=== PATIENT | female | born 1970 | race African-American/Black ===

== ENCOUNTER 2017-02-11 12:39 | Emergency (ER) | payer OTHER ==
[~2017-02-11] VITALS: Ht 162.6 cm; Wt 113.4 kg
[~2017-02-11 12:39] MED LIST: ALBUTEROL2.5 MG/0.5 INH; ALBUTEROL2.5 MG/31 IH; ALLEGRA ALLERG180 MG; ALLER-EASE180 MG PO; ASMANEX220 MCG INH; CLINDAMYCIN HC150 MG; DOXYCYCLINE 10100 MG; FLONASE 0.05%50 MCG NASAL; FLOVENT HFA 1110 MCG INH; GLUCOTROL5 MG PO; HYDROCHLOROTHIA25 M2 PO; HYDROCODONE-AP1 EAC6; INDOMETHACIN 5050 MG PO; IRON325 PO; MEDROLDOSEPACK PO; METFORMIN HCL500 MG PO; ORADENT 0.1% DEN5 G1 TOP; PROAIR HFA8.5 GM; SINGULAIR 10 MG10 M1 PO; TRI-SPRINTEC1 EACH PO; VASOTEC10 MG PO; ZPAK PO
[2017-02-11 12:43] VITALS: BP 123/79
[2017-02-11] MEDS ORDERED: ALBUTEROL2.5 MG/31 INH (14:27)
[2017-02-11] MEDS ORDERED: PREDNISONE 20 M20 MG PO (14:27)
[2017-02-11] MEDS ORDERED: FLONASE 0.05%50 MCG NASAL (14:27)
[2017-10-28] MEDS ORDERED: ONDANSETRON HCL4 M2 PO (19:45)
[2017-10-28] MEDS ORDERED: NORCO 5-325 TA1 EACH PO (19:45)
[2017-10-28] MEDS ORDERED: LIORESAL 10 MG10 MG PO (19:45)
== END 2017-02-11 15:02 | disposition home or self-care (01) ==
LOC: ER 12:39
DX: J45.901 Unspecified asthma with (acute) exacerbation (principal); J06.9 Acute upper respiratory infection, unspecified; J34.89 Other specified disorders of nose and nasal sinuses; I10 Essential (primary) hypertension; E11.9 Type 2 diabetes mellitus without complications; Z98.890 Other specified postprocedural states; Z88.0 Allergy status to penicillin; Z88.6 Allergy status to analgesic agent

== ENCOUNTER 2017-06-24 22:19 | Emergency (ER) | payer OTHER ==
[~2017-06-24] VITALS: Ht 165.1 cm; Wt 113.4 kg
[~2017-06-24 22:19] MED LIST changes: +ALBUTEROL2.5 MG/31 INH; +PREDNISONE 20 M20 MG PO
[2017-06-24] MEDS ORDERED: SINGULAIR 10 MG10 M1 PO (22:53)
[2017-06-24] MEDS ORDERED: THEREMS-M1 EACH PO (22:54)
[2017-06-24] MEDS ORDERED: IRON325 PO (22:54)
[2017-06-25] MEDS ORDERED: MOBIC15 MG PO (00:36)
== END 2017-06-25 00:49 | disposition home or self-care (01) ==
LOC: ER 22:19
DX: M25.561 Pain in right knee (principal); J45.909 Unspecified asthma, uncomplicated; I10 Essential (primary) hypertension; E11.9 Type 2 diabetes mellitus without complications; M19.90 Unspecified osteoarthritis, unspecified site; Z88.1 Allergy status to other antibiotic agents; Z88.0 Allergy status to penicillin; Z88.6 Allergy status to analgesic agent

== ENCOUNTER 2017-08-21 22:11 | Emergency (ER) | payer OTHER ==
[~2017-08-21] VITALS: Ht 165.1 cm; Wt 113.4 kg
--- NOTE | ~2017-08-21 | EKG ---
[address] [address] ELECTROCARDIOGRAM REPORT Name: MELISSA WILSON Room #: [facility]#: [id number] Admission: 08/21/17 Attend Phys: Discharge: 08/22/17 Date of : 66 Report #: [id number] THIS REPORT FOR: //name// [facility] ED Test Date: 2017-08-21 Test Time: 22:17:43 Pat Name: MELISSA WILSON Department: Room: Gender: F Assistant Art Director: MZOOK : 1970 Requested By: Chavez Lassiter Order Number: [id number] MD: Benjamin Talamantes Measurements Intervals [place] Rate: 94 P: 59 OR: 178 QRS: 7 QRSD: 82 T: 5 QT: 353 QTc: 442 Interpretive Statements Sinus rhythm No significant abnormality Compared to ECG 03/08/2015 10:50:34 No significant change was found Electronically Signed On 08-22-2017 8:45:20 CDT by Benjamin Talamantes [email or web address] <ELECTRONICALLY SIGNED> By: Benjamin Talamantes MD, [facility] 08/22/17 0845 [id number] 16 Benjamin Talamantes MD, FACC /EPI
[~2017-08-21 22:11] MED LIST changes: +MOBIC15 MG PO; +THEREMS-M1 EACH PO
[2017-08-22 00:48] LABS: ABSOLUTE NEUTROPHILS 5.3 thou/uL (1.4-8.2); EOSINOPHILS 2.6 % (0.0-3.0); HEMATOCRIT 33.2 % (37.0-47.0); HEMOGLOBIN 11.3 gm/dL (12.0-15.0); LYMPHOCYTES 34.6 % (24.0-44.0); MCH 29.7 pg (26.0-34.0); MCHC 33.9 g/dL (28.0-37.0); MCV 87.4 fL (80.0-100.0); MONOCYTES 11.6 % (1.0-8.0); PLATELET COUNT 423 thou/uL (150-400); POLYS 50.2 % (36.0-66.0); RDW 13.9 % (10.5-14.5); WBC 10.5 thou/uL (4.0-11.0)
[2017-08-22 00:56] LABS: ANION GAP 9 mmol/L (7-16); BUN 18 mg/dL (7-18); CALCIUM 8.9 mg/dL (8.5-10.1); CHLORIDE 100 mmol/L (98-107); CO2 25 mmol/L (21-32); GLUCOSE 302 mg/dL (74-106); POTASSIUM 3.5 mmol/L (3.5-5.1); SODIUM 134 mmol/L (136-145)
[2017-08-22 01:04] LABS: ALBUMIN 3.3 g/dL (3.4-5.0); SGOT 17 U/L (15-37); SGPT 21 U/L (30-65); TOTAL BILIRUBIN 0.1 mg/dL (<0.1-1.0); TOTAL PROTEIN 7.4 g/dL (6.4-8.2); TROPONIN-I <0.06 ng/mL (<0.06)
[2017-08-22] MEDS ORDERED: PROAIR HFA8.5 GM INH (01:24)
[2017-08-22] MEDS ORDERED: PREDNISONE 20 M20 MG PO (01:24)
[2017-08-22] MEDS ORDERED: ZPAK PO (01:24)
== END 2017-08-22 02:30 | disposition home or self-care (01) ==
LOC: ER 22:11
PROVIDERS: Physician Assistant
DX: J45.901 Unspecified asthma with (acute) exacerbation (principal); M25.561 Pain in right knee; I10 Essential (primary) hypertension; E11.9 Type 2 diabetes mellitus without complications; M19.90 Unspecified osteoarthritis, unspecified site; Z88.1 Allergy status to other antibiotic agents; Z88.0 Allergy status to penicillin; Z88.6 Allergy status to analgesic agent

== ENCOUNTER 2017-10-31 03:49 | Emergency (ER) | payer OTHER ==
[~2017-10-31] VITALS: Ht 165.1 cm; Wt 110.7 kg
[~2017-10-31 03:49] MED LIST changes: +LIORESAL 10 MG10 MG PO; +NORCO 5-325 TA1 EACH PO; +ONDANSETRON HCL4 M2 PO; +PROAIR HFA8.5 GM INH
[2017-10-31] MEDS ORDERED: MOBIC15 MG PO (05:54)
== END 2017-10-31 06:12 | disposition home or self-care (01) ==
LOC: ER 03:49
DX: S16.1XXA Strain of muscle, fascia and tendon at neck level, initial encounter (principal); S09.90XA Unspecified injury of head, initial encounter; R11.10 Vomiting, unspecified; R42 Dizziness and giddiness; R19.7 Diarrhea, unspecified; I10 Essential (primary) hypertension; J45.909 Unspecified asthma, uncomplicated; E11.9 Type 2 diabetes mellitus without complications; M19.90 Unspecified osteoarthritis, unspecified site; Z98.890 Other specified postprocedural states; Z88.1 Allergy status to other antibiotic agents; Z88.0 Allergy status to penicillin; Z88.6 Allergy status to analgesic agent; V89.2XXA Person injured in unspecified motor-vehicle accident, traffic, initial encounter; Y92.410 Unspecified street and highway as the place of occurrence of the external cause; Y93.89 Activity, other specified; Y99.8 Other external cause status

== ENCOUNTER 2018-04-10 07:48 | Emergency (ER) | payer OTHER ==
[~2018-04-10] VITALS: Ht 162.6 cm; Wt 109.8 kg
[2018-04-10 08:07] LABS: ABSOLUTE NEUTROPHILS 4.9 thou/uL (1.4-8.2); EOSINOPHILS 4.2 % (0.0-3.0); HEMOGLOBIN 12.3 gm/dL (12.0-15.0); MCH 29.6 pg (26.0-34.0); MCHC 34.1 g/dL (28.0-37.0); MCV 86.6 fL (80.0-100.0); MONOCYTES 7.4 % (1.0-8.0); PLATELET COUNT 442 thou/uL (150-400); POLYS 51.4 % (36.0-66.0); RBC 4.16 mil/uL (4.20-5.00); RDW 13.8 % (10.5-14.5); WBC 9.6 thou/uL (4.0-11.0)
[2018-04-10 08:15] LABS: ANION GAP 13 mmol/L (7-16); BUN 19 mg/dL (7-18); CALCIUM 9.7 mg/dL (8.5-10.1); CHLORIDE 100 mmol/L (98-107); CO2 25 mmol/L (21-32); CREATININE 1.1 mg/dL (0.6-1.0); GLUCOSE 235 mg/dL (74-106); POTASSIUM 3.4 mmol/L (3.5-5.1); SODIUM 138 mmol/L (136-145)
[2018-04-10 08:23] LABS: TROPONIN-I <0.06 ng/mL (<0.06)
[2018-04-10] MEDS ORDERED: XANAX 0.5 MG0.5 M1 PO (10:58)
[2018-04-10 11:15] VITALS: BP 114/66
--- NOTE | 2018-04-10 12:15 | EKG ---
[place] [address] [facility] [place] [address] ELECTROCARDIOGRAM REPORT Name: STEVE,MELISSA Peralta Room #: [facility]#: [id number] ������������������ Admission: 04/10/18 ������������������ Attend Phys: Discharge: 04/10/18 ������������������ Date of : 66 Report #: [id number] ����������������������������������������������������������������� [id number] THIS REPORT FOR: //name// [facility] ED Test Date: 2018-04-10 Test Time: 07:58:56 Pat Name: MELISSA WILSON Department: Room: Gender: F Rn Recovery: nevaeh : 1970 Requested By: Penny Lundberg Order Number: [id number] MD: Luis E Quinonez Measurements Intervals [place] Rate: 96 P: 50 [place]: 189 QRS: -2 QRSD: 85 T: 12 QT: 357 QTc: 452 Interpretive Statements Sinus rhythm Poor R-wave progression Nonspecific ST-T wave changes Baseline wander in lead(s) V5 Compared to ECG 08/21/2017 22:17:43 No significant changes Electronically Signed On 04-10-2018 12:15:13 OFFSHORING MANAGER by Luis E Quinonez [email or web address] ��������������������������������������������� <ELECTRONICALLY SIGNED> ���������������������������������������� By: Luis E Quinonez MD ��������������������������������������������� 04/10/18 1215 [id number] Luis E Quinonez MD /EPI
== END 2018-04-10 11:15 | disposition home or self-care (01) ==
LOC: ER 07:48
PROVIDERS: Student in an Organized Health Care Education/Training Program
DX: F41.9 Anxiety disorder, unspecified (principal); J45.909 Unspecified asthma, uncomplicated; I10 Essential (primary) hypertension; E11.9 Type 2 diabetes mellitus without complications; M19.90 Unspecified osteoarthritis, unspecified site; Z98.890 Other specified postprocedural states; Z88.1 Allergy status to other antibiotic agents; Z88.0 Allergy status to penicillin; Z88.6 Allergy status to analgesic agent

== ENCOUNTER → 2019-07-23 | Outpatient (CLI) | payer BC, OTHER ==
[~2019-07-23] MED LIST changes: +XANAX 0.5 MG0.5 M1 PO
== END ==
LOC: ULTRA 08:33
PROVIDERS: ATTEND Family Medicine
DX: R10.11 Right upper quadrant pain (principal)

== ENCOUNTER → 2019-11-19 | Outpatient (CLI) | payer BC, OTHER | LOC: MRI 10:12 | DX: H47.291 Other optic atrophy, right eye (principal) ==

== ENCOUNTER → 2020-03-24 | Outpatient (CLI) | payer OTHER | LOC: ULTRA 10:50 | PROVIDERS: ATTEND Family Medicine | DX: R10.11 Right upper quadrant pain (principal) ==

== ENCOUNTER → 2020-04-24 | Outpatient (CLI) | payer BC, OTHER | LOC: NUC 07:48 | PROVIDERS: ATTEND Family Medicine | DX: R10.11 Right upper quadrant pain (principal) ==

== ENCOUNTER → 2020-05-26 | Outpatient (CLI) | payer BC, OTHER | LOC: LAB 13:49 | PROVIDERS: ATTEND Family Medicine | DX: Z01.812 Encounter for preprocedural laboratory examination (principal); Z20.822 Contact with and (suspected) exposure to COVID-19 ==